=== PATIENT | male | born 1985 | race African-American/Black ===

== ENCOUNTER 2020-12-02 00:46 | Emergency (ER) | payer SELFPAY ==
--- NOTE | 2020-12-02 00:52 | NUR ---
ASSUMED CARE OF PATIENT. PATIENT REPORTS HE WAS AT THE [employer] AND HIT HIS HEAD AGAINST A WALL. UNKNOWN LOC. PT IS A&O X4. VS STABLE. PT IS DROWSY. CALL LIGHT IN PLACE. WILL CONTINUE TO MONITOR.
[2020-12-02 01:22] LABS: BASOPHILS % (AUTO) 1 % (0-1); EOSINOPHILS % (AUTO) 1 % (1-7); LYMPHOCYTES % (AUTO) 23 % (22-44); MEAN CORPUSCULAR HEMOGLOBIN 32.6 pg (27.5-34.5); MEAN CORPUSCULAR HGB CONC 34.1 g/dL (33.2-36.2); MEAN PLATELET VOLUME 9.7 fL (7.4-10.4); MONOCYTES % (AUTO) 6 % (2-9); NEUTROPHILS % (AUTO) 70 % (42-75); PLATELET COUNT 200 x10^3/uL (130-400); RED BLOOD COUNT 4.23 x10^6/uL (4.38-5.82); RED CELL DISTRIBUTION WIDTH 13.2 % (9.4-14.8)
[2020-12-02 01:31] LABS: ALBUMIN 3.8 g/dL (3.4-5.0); ANION GAP 7 mmol/L (5-15); CHLORIDE 104 mmol/L (98-107); CREATININE 0.92 mg/dL (0.7-1.3)
[2020-12-02 01:35] LABS: TROPONIN I < 0.015 ng/mL (0.000-0.045)
[2020-12-02 01:44] VITALS: BP 107/70
--- NOTE | 2020-12-02 02:09 | NUR ---
REPORT GIVEN TO NUBIA ALVARADO
== END 2020-12-02 02:42 | disposition home or self-care (01) ==
LOC: ED 02:27
DX: R07.89 Other chest pain (principal)
CPT/HCPCS: 36415; 71045; 80048; 80320; 82040; 84484; 85025; 85379; 93005; 99285; G0480